=== PATIENT | female | born 1970 | race Hispanic/Latino ===

== ENCOUNTER 2022-07-19 16:49 | Emergency (ER) | payer OTHER, BC ==
[2022-07-19 16:50] VITALS: BP 116/68
[2022-07-19] MEDS ORDERED: CYCL5TAB PO (17:07)
[2022-07-19] MEDS ORDERED: KETO10TA2 PO (17:07)
== END 2022-07-19 17:25 | disposition home or self-care (01) ==
LOC: EDH 16:49
DX: M62.838 Other muscle spasm (principal); R51.9 Headache, unspecified; V49.69XA Unspecified car occupant injured in collision with other motor vehicles in traffic accident, initial encounter; Y93.89 Activity, other specified; Y92.413 State road as the place of occurrence of the external cause; Y99.8 Other external cause status